=== PATIENT | female | born 1995 | race Caucasian/White ===

== ENCOUNTER 2020-10-12 22:54 | Inpatient (IN) | payer OTHER ==
[2020-10-12 23:19] VITALS: BMI 22.3
[2020-10-12] MEDS ORDERED: DEXAMETHASONE SOD PHOSPHATE 10 MG/1 ML VIAL IVPUSH ONE (23:20)
[2020-10-12] MEDS ORDERED: SODIUM CHLORIDE 0.9% 500 ML INFUS.BAG IV ONE (23:22)
[2020-10-12] MEDS ORDERED: DEXAMETHASONE SOD PHOSPHATE 10 MG/1 ML VIAL ONE (23:54)
[2020-10-13 00:30] LABS: CHLORIDE 108 mmol/L (98-107); POTASSIUM 4.1 mmol/L (3.5-5.1); SODIUM 141 mmol/L (136-145)
[2020-10-13 00:32] LABS: CALCIUM 8.6 mg/dL (8.5-10.1)
[2020-10-13 00:33] LABS: ALBUMIN 3.8 g/dl (3.4-5.0); ANION GAP 6 MMOL/L (8-16); BLOOD UREA NITROGEN 9.3 mg/dL (7-18); CO2 27 mmol/L (21-32); GLUCOSE,RANDOM 97 mg/dL (74-106)
[2020-10-13 00:35] LABS: BILIRUBIN,DIRECT 0.1 mg/dL (0.0-0.2)
[2020-10-13 00:36] LABS: CREATININE 0.7 mg/dL (0.55-1.3); SGOT/AST 28 U/L (15-37); SGPT/ALT 31 U/L (13-61)
[2020-10-13 00:37] LABS: BILIRUBIN,TOTAL 0.1 mg/dL (0.2-1); LDH 163 U/L (84-246)
[2020-10-13 00:38] LABS: TOT PROT 7.5 g/dl (6.4-8.2)
[2020-10-13 00:39] LABS: ALK PHOS 65 U/L (45-117)
[2020-10-13] MEDS ORDERED: ACETAMINOPHEN 1000 MG/100 ML VIAL (NON FORMULARY) IVPB ONE (01:54)
[2020-10-13] MEDS ORDERED: ACETAMINOPHEN INJECTION 100 ML IVPB ONE (01:55)
[2020-10-13] MEDS ORDERED: guaiFENesin/D-METHORPHAN HB 10 ML UNIT-DOSE CUPS PO ONE (02:56)
[2020-10-13] MEDS ORDERED: ACETAMINOPHEN 325 MG TABLET (FP) PO PRN ×2 (04:02→11:55)
[2020-10-13] MEDS ORDERED: ZINC SULFATE 220 MG CAPSULE (FP) ONE (09:02)
[2020-10-13] MEDS ORDERED: ASCORBIC ACID 500 MG TABLET (FP) ONE (09:02)
[2020-10-13] MEDS ORDERED: PT OWN MED DRAWER 7, Y5N ONE (09:03)
[2020-10-13] MEDS ORDERED: ENOXAPARIN NA (PORCINE) 40 MG/0.4 ML DISP.SYRIN SQ ONE (09:03)
[2020-10-13] MEDS ORDERED: DEXAMETHASONE 4 MG TABLET (FP) ONE (09:15)
[2020-10-13] MEDS ORDERED: ACETAMINOPHEN 325 MG TABLET (FP) ONE (09:15)
[2020-10-13] MEDS ORDERED: ENOXAPARIN NA (PORCINE) 40 MG/0.4 ML DISP.SYRIN SQ SCH (10:00)
[2020-10-13] MEDS ORDERED: ASCORBIC ACID 500 MG TABLET (FP) PO SCH ×2 (10:00→22:00)
[2020-10-13] MEDS ORDERED: CHOLECALCIFEROL (VIT D3) 1,000 UNIT (25 MCG) TABLET PO SCH (10:00)
[2020-10-13] MEDS ORDERED: ZINC SULFATE 220 MG CAPSULE (FP) PO SCH (10:00)
[2020-10-13] MEDS ORDERED: DEXAMETHASONE 4 MG TABLET (FP) PO SCH (10:00)
[2020-10-13 12:04] VITALS: TEMP 98
[2020-10-13] MEDS ORDERED: guaiFENesin/CODEINE 10 ML UNIT-DOSE CUPS PO PRN (12:41)
[2020-10-13 16:02] VITALS: BP 110/66; PULSE 75
[2020-10-14] MEDS ORDERED: ZINC SULFATE 220 MG CAPSULE (FP) PO SCH (10:00)
[2020-10-14] MEDS ORDERED: DEXAMETHASONE 4 MG TABLET (FP) PO SCH (10:00)
[2020-10-14] MEDS ORDERED: CHOLECALCIFEROL (VIT D3) 1,000 UNIT (25 MCG) TABLET PO SCH (10:00)
[2020-10-14] MEDS ORDERED: ENOXAPARIN NA (PORCINE) 40 MG/0.4 ML DISP.SYRIN SQ SCH (10:00)
== END 2020-10-13 17:30 | disposition home or self-care (01) | DRG 179 ==
LOC: JER 22:54 → JERBED 10-13 01:29 → INTOOBSV 10-13 01:29 → OBSVTOIN 10-13 09:48 → J4W 10-13 11:25
PROVIDERS: ADMIT Internal Medicine; ATTEND Internal Medicine
PROC: 8E0ZXY6 Isolation (ICD-10-PCS; principal; 2020-10-12)
DX: U07.1 COVID-19 (principal); R09.02 Hypoxemia; R06.02 Shortness of breath
CPT/HCPCS: 36415; 71045-TC-FY; 80053; 82248; 82550; 82728; 82803; 83605; 83615; 84484; 84703; 85025; 85379; 85610; 85730; 86140; 93005; 93010; 94761; 99285-25; C9803; G0378; J0131; J1100; U0003